=== PATIENT | male | born 1970 | race Caucasian/White ===

== ENCOUNTER 2019-05-08 15:28 | Emergency (ER) | payer SELFPAY ==
[~2019-05-08] VITALS: Ht 172.7 cm; Wt 77.1 kg
--- NOTE | 2019-05-08 15:28 | NUR ---
ED Nurse Note: PT BROUGHT IN TO ER TODAY FROM HOME. AOX4. PT C/O LEFT UPPER QUADRANT ABDOMINAL PAIN X YESTERDAY BUT WORSE TODAY. PT RATES PAIN 8/10 AT THIS TIME. PT ALSO C/O NAUSEA AND 12 EPISODES OF VOMITING. PT DENIES NAUSEA AT THIS TIME. NO ACTIVE VOMITING. PT STATES HE HAS HX OF PANCREATITIS. PT DENIES RECENT ALCOHOL CONSUMPTION. ABDOMEN NONDISTENDED AND NONTENDER TO PALPATION. ACTIVE BOWEL SOUNDS IN ALL QUADRANTS.
[2019-05-08 15:35] VITALS: BP 114/74
[2019-05-08] MEDS ORDERED: LANTUS SOL100 UNIT/1 SUBQ (15:40)
[2019-05-08] MEDS ORDERED: NOVOLOG100 UNIT/4 SQ (15:40)
[2019-05-08] MEDS ORDERED: Morphine Sulfate 4mg/ml Inj (IV USE ONLY) IVP ONE (15:45)
[2019-05-08] MEDS ORDERED: Omnipaque-300 100ml vial INJ PRN (15:45)
[2019-05-08] MEDS ORDERED: Ketorolac 30mg Inj IV ONE (15:45)
[2019-05-08 16:01] LABS: EOSINOPHILS % (AUTO) 0.9 % (0.0-3.0); HEMATOCRIT 44.2 % (42.0-52.0); HEMOGLOBIN 15.5 G/DL (14.2-18.0); LYMPHOCYTES % (AUTO) 31.5 % (20.0-45.0); MEAN CORPUSCULAR VOLUME 92 FL (80-99); MONOCYTES % (AUTO) 9.5 % (1.0-10.0); NEUTROPHILS % (AUTO) 57.1 % (45.0-75.0); PLATELET COUNT 319 K/UL (150-450); RED CELL DISTRIBUTION WIDTH 10.4 % (11.6-14.8); WHITE BLOOD COUNT 4.8 K/UL (4.8-10.8)
[2019-05-08 16:05] LABS: ANION GAP 11 mmol/L (5-15); APPEARANCE,URINE CLEAR; BILIRUBIN, URINE NEGATIVE (NEGATIVE); BLOOD UREA NITROGEN 13 mg/dL (7-18); CALCIUM 9.7 MG/DL (8.5-10.1); CARBON DIOXIDE 28 MMOL/L (21-32); CHLORIDE 105 MMOL/L (98-107); COLOR,URINE PALE YELLOW; GLUCOSE, URINE (UA) NEGATIVE (NEGATIVE); KETONES,URINE NEGATIVE (NEGATIVE); LEUKOCYTE ESTERASE ,URINE NEGATIVE (NEGATIVE); NITRITE,URINE NEGATIVE (NEGATIVE); PH,URINE 7 (4.5-8.0); POTASSIUM 4.1 MMOL/L (3.5-5.1); PROTEIN,URINE NEGATIVE (NEGATIVE); SODIUM 144 MMOL/L (136-145); UROBILINOGEN,URINE NORMAL MG/DL (0.0-1.0)
[2019-05-08 16:10] LABS: ALANINE AMINOTRANSFERASE 37 U/L (12-78); ALBUMIN 3.5 G/DL (3.4-5.0); ALKALINE PHOSPHATASE 100 U/L (46-116); ASPARTATE AMINO TRANSFERASE 19 U/L (15-37); BILIRUBIN,TOTAL 0.4 MG/DL (0.2-1.0)
--- NOTE | 2019-05-08 16:27 | NUR ---
ED Nurse Note: PT TO CT VIA WHEELCHAIR.
--- NOTE | 2019-05-08 16:40 | NUR ---
ED Nurse Note: PT BACK FROM CT VIA WHEELCHAIR.
--- NOTE | 2019-05-08 16:58 | Diagnostic Imaging Report ---
Clinical Indication: Left upper quadrant pain Technique: No oral contrast utilized, per emergency room physician request IV administration nonionic contrast. Venous phase spiral acquisition obtained through the abdomen and pelvis. Multiplanar reconstructions were generated. Total dose length product 920 mGycm. CTDIvol(s) 14 mGy. Dose reduction achieved using automated exposure control Comparison: none Findings: Evaluation of the GI tract is limited due to the lack of enteric contrast demonstration. There are a few scattered colonic diverticula. No evidence of diverticulitis. The appendix is normal. A segment of the mid small bowel is mildly distended and fluid-filled. Transition to normal caliber distal ileum is tapered. The stomach is distended and filled with food. The duodenum is mildly distended. No downstream obstructive lesion is demonstrated. There is a focally distended short segment of proximal jejunum in the left upper quadrant which demonstrates equivocal mild wall thickening and tapered transition. No free or loculated intraperitoneal gas or fluid. The distal esophagus is unremarkable. The liver, gallbladder, bile ducts are unremarkable. The pancreas is diffusely atrophic, demonstrates extensive calcifications and mild dilatation of the pancreatic duct. The spleen, adrenals, kidneys are unremarkable. No renal or ureteral calculi, hydronephrosis, or hydroureter demonstrated. The bladder is unremarkable. No pelvic mass or adenopathy. No retroperitoneal or mesenteric mass or adenopathy. The bones are unremarkable except for minimal degenerative proliferative changes of the thoracic spine and upper lumbar spine. Included lung bases demonstrate posterior dependent atelectatic changes. Impression: Limited assessment of the GI tract, due to lack of enteric contrast administration Segments of focally dilated fluid-filled proximal jejunum and mid small bowel without evidence of transition point, as described. This may indicate enteritis changes. No other acute abnormality Minimal colonic diverticulosis. No evidence of diverticulitis Evidence of chronic calcifying pancreatitis Basilar pulmonary parenchymal dependent atelectatic changes and degenerative spondylosis incidentally noted The CT scanner at [facility] is accredited by the [employer] and the scans are performed using protocols designed to limit radiation exposure to as low as reasonably achievable to attain images of sufficient resolution adequate for diagnostic evaluation.
[2019-05-08 17:07] VITALS: BP 122/78
--- NOTE | 2019-05-08 17:08 | NUR ---
ED Nurse Note: PT LAYING PEACEFULLY IN BED IN NAD. AOX4. PRESCRIPTIONS AND DISCHARGE PAPERWORK EXPLAINED TO PT. PT VERBALIZES UNDERSTANDING AND ALL QUESTIONS ANSWERED. PRESCRIPTIONS AND DISCHARGE PAPERWORK GIVEN TO PT, IV AND ID WRISTBAND REMOVED. PT WALKED OUT OF ER WITH STEADY GAIT AND ALL BELONGINGS.
[2019-05-08] MEDS ORDERED: RANITIDINE HCL150 MG ORAL (17:11)
[2019-05-08] MEDS ORDERED: ONDANSETRON ODT4 MG BC (17:11)
[2019-05-08] MEDS ORDERED: DICYCLOMINE HCL10 MG ORAL (17:11)
--- NOTE | 2019-05-08 17:43 | Emergency Room Report ---
History of Present Illness General Chief Complaint: Abdominal Pain Source: Patient Present Illness HPI 49-year-old male presents to ED for evaluation. Brought in by EMS complaining of abdominal pain x2 days. Localized to left upper quadrant, throbbing, 8 out of 10, nonradiating. Notes nausea, denies vomiting. Denies any diarrhea. Denies fevers or chills. Notes history of pancreatitis. States this feels similar. Denies alcohol use. No other aggravating relieving factors. Denies any other associated symptoms Allergies: Coded Allergies: No Known Allergies (Unverified , 05/08/19) Patient History Past Medical History: DM, other - pancreatitis Past Surgical History: none, other - aortic surgery 2014 Pertinent Family History: none Social History: Denies: smoking, alcohol use, drug use Immunizations: UTD Reviewed Nursing Documentation: PMH: Agreed; PSxH: Agreed Nursing Documentation-PMH Past Medical History: No History, Except For Hx Cardiac Problems: Yes - aorta surgery 2014 Hx Diabetes: Yes Review of Systems All Other Systems: negative except mentioned in HPI Physical Exam Vital Signs Date Time Temp Pulse Resp B/P (MAP) Pulse Ox O2 Delivery O2 Flow Rate FiO2 05/08/19 15:26 98.4 92 18 140/74 (96) 100 Room Air Sp02 EP Interpretation: reviewed, normal General Appearance: no apparent distress, alert, GCS 15, non-toxic Head: normocephalic, atraumatic Eyes: bilateral eye normal inspection, bilateral eye PERRL ENT: hearing grossly normal, normal pharynx, no angioedema, normal voice Neck: full range of motion, supple/symm/no masses Respiratory: chest non-tender, lungs clear, normal breath sounds, speaking full sentences Cardiovascular #1: regular rate, rhythm, no edema Cardiovascular #2: 2+ carotid (R), 2+ carotid (L), 2+ radial (R), 2+ radial (L) , 2+ dorsalis pedis (R), 2+ dorsalis pedis (L) Gastrointestinal: normal bowel sounds, soft, non-distended, no guarding, no rebound, tenderness Rectal: deferred Genitourinary: normal inspection, no CVA tenderness Musculoskeletal: back normal, gait/station normal, normal range of motion, non- tender Neurologic: alert, oriented x3, responsive, motor strength/tone normal, sensory intact, speech normal Psychiatric: judgement/insight normal, memory normal, mood/affect normal, no suicidal/homicidal ideation Reflexes: 3+ bicep (R), 3+ bicep (L), 3+ tricep (R), 3+ tricep (L), 3+ knee (R) , 3+ knee (L) Lymphatic: no adenopathy Medical Decision Making Diagnostic Impression: Primary Impression: Gastroenteritis ER Course Hospital Course 49 yo M presents to ED c/o abd pain. h/o pancreatitis Differential diagnosis includes-appendicitis, cholecystitis, small bowel obstruction, pancreatitis Clinical course Patient placed on stretcher. After initial history and physical I ordered labs , IV fluids, pain medications and CT scan Labs - no leukocytosis, electrolytes ok, LFTs normal, lipase ok CT scan shows no evidence of pancreatitis. evidence of interitis Upon reassessment, patient states pain has improved. Discussed findings with patient. Will discharge to home. Denies any diarrhea. Safe for discharge for close outpatient follow-up. I will provide PMD referrals I feel this is a highly complex case requiring extensive working including EKG/ Rhythm strip, Xray/CT/US, Blood/urine lab work, repeat exams while in ED, and administration of strong opiates/narcotics for pain control, admission to hospital or close patient follow up. Diagnosis -gastroenteritis Stable and discharged to home with Rx zantac, zofran, bentyl. Followup with PMD. Return to ED if symptoms recur or worsen Labs Test 05/08/19 15:42 White Blood Count 4.8 K/UL (4.8-10.8) Red Blood Count 4.80 M/UL (4.70-6.10) Hemoglobin 15.5 G/DL (14.2-18.0) Hematocrit 44.2 % (42.0-52.0) Mean Corpuscular Volume 92 FL (80-99) Mean Corpuscular Hemoglobin 32.4 PG (27.0-31.0) Mean Corpuscular Hemoglobin Concent 35.2 G/DL (32.0-36.0) Red Cell Distribution Width 10.4 % (11.6-14.8) Platelet Count 319 K/UL (150-450) Mean Platelet Volume 5.5 FL (6.5-10.1) Neutrophils (%) (Auto) 57.1 % (45.0-75.0) Lymphocytes (%) (Auto) 31.5 % (20.0-45.0) Monocytes (%) (Auto) 9.5 % (1.0-10.0) Eosinophils (%) (Auto) 0.9 % (0.0-3.0) Basophils (%) (Auto) 1.0 % (0.0-2.0) Urine Color Pale yellow Urine Appearance Clear Urine pH 7 (4.5-8.0) Urine Specific [place] 1.010 (1.005-1.035) Urine Protein Negative (NEGATIVE) Urine Glucose (UA) Negative (NEGATIVE) Urine Ketones Negative (NEGATIVE) Urine Blood Negative (NEGATIVE) Urine Nitrite Negative (NEGATIVE) Urine Bilirubin Negative (NEGATIVE) Urine Urobilinogen Normal MG/DL (0.0-1.0) Urine Leukocyte Esterase Negative (NEGATIVE) Sodium Level 144 MMOL/L (136-145) Potassium Level 4.1 MMOL/L (3.5-5.1) Chloride Level 105 MMOL/L (98-107) Carbon Dioxide Level 28 MMOL/L (21-32) Anion Gap 11 mmol/L (5-15) Blood Urea Nitrogen 13 mg/dL (7-18) Creatinine 1.0 MG/DL (0.55-1.30) Estimat Glomerular Filtration Rate > 60 mL/min (>60) Glucose Level 117 MG/DL (74-106) Calcium Level 9.7 MG/DL (8.5-10.1) Total Bilirubin 0.4 MG/DL (0.2-1.0) Aspartate Amino Transf (AST/SGOT) 19 U/L (15-37) Alanine Aminotransferase (ALT/SGPT) 37 U/L (12-78) Alkaline Phosphatase 100 U/L (46-116) Total Protein 7.0 G/DL (6.4-8.2) Albumin 3.5 G/DL (3.4-5.0) Globulin 3.5 g/dL Albumin/Globulin Ratio 1.0 (1.0-2.7) Lipase 129 U/L (73-393) CT/MRI/US Diagnostic Results CT/MRI/US Diagnostic Results : Imaging Test Ordered: CT A/P Impression Findings: Evaluation of the GI tract is limited due to the lack of enteric contrast demonstration. There are a few scattered colonic diverticula. No evidence of diverticulitis. The appendix is normal. A segment of the mid small bowel is mildly distended and fluid-filled. Transition to normal caliber distal ileum is tapered. The stomach is distended and filled with food. The duodenum is mildly distended. No downstream obstructive lesion is demonstrated. There is a focally distended short segment of proximal jejunum in the left upper quadrant which demonstrates equivocal mild wall thickening and tapered transition. No free or loculated intraperitoneal gas or fluid. The distal esophagus is unremarkable. The liver, gallbladder, bile ducts are unremarkable. The pancreas is diffusely atrophic, demonstrates extensive calcifications and mild dilatation of the pancreatic duct. The spleen, adrenals, kidneys are unremarkable. No renal or ureteral calculi, hydronephrosis, or hydroureter demonstrated. The bladder is unremarkable. No pelvic mass or adenopathy. No retroperitoneal or mesenteric mass or adenopathy. The bones are unremarkable except for minimal degenerative proliferative changes of the thoracic spine and upper lumbar spine. Included lung bases demonstrate posterior dependent atelectatic changes. Last Vital Signs Date Time Temp Pulse Resp B/P (MAP) Pulse Ox O2 Delivery O2 Flow Rate FiO2 05/08/19 17:07 98.3 86 17 122/78 98 Room Air Status: improved Disposition: HOME, SELF-CARE Condition: Stable Scripts Dicyclomine Hcl* (DICYCLOMINE HCL*) 10 Mg Capsule 10 MG ORAL QID, #20 CAP Prov: Jeramie Nick MD 05/08/19 Ranitidine Hcl* (ZANTAC*) 150 Mg Tablet 150 MG ORAL TWICE A DAY, #30 TAB Prov: Jeramie Nick MD 05/08/19 Ondansetron Odt* (ZOFRAN ODT*) 4 Mg Tab.rapdis 4 MG BC EVERY 6 HOURS PRN for Nausea & Vomiting, #20 TAB 0 Refills Prov: Jeramie Nick MD 05/08/19 Referrals: NOT CHOSEN IPA/,REFERRING (PCP) Lesia [facility] Patient Instructions: Viral Gastroenteritis, Adult, [id number] Jeramie Nick MD May 08, 2019 17:43
== END 2019-05-08 17:07 | disposition home or self-care (01) ==
LOC: EDBD 15:28 → EMR 16:00
DX: K52.9 Noninfective gastroenteritis and colitis, unspecified (principal); E11.9 Type 2 diabetes mellitus without complications
CPT/HCPCS: 36415; 74177; 80053; 81003; 83690; 85025; 96361; 96374; 96375; 99284; J1885; J2270; Q9967; S0028; J7030